=== PATIENT | female | born 1995 | race Hispanic/Latino ===

== ENCOUNTER 2018-09-05 19:11 | Inpatient (IN) | payer MEDICAID, SELFPAY ==
[~2018-09-05 19:11] MED LIST: Bupivacaine PF 0.5% 30 ML VIAL ONE
[2018-09-05] MEDS ORDERED: NS w/ Oxytocin 10 units 500 ML IV SCH (19:46)
[2018-09-05] MEDS ORDERED: HYDROcodone/Acetaminophen 5/325 mg Tablet PO PRN ×2 (19:46)
[2018-09-05] MEDS ORDERED: Promethazine HCl 25 MG/ML VIAL IM PRN (19:46)
[2018-09-05] MEDS ORDERED: hydrALAZINE 20 MG/ML VIAL SLOW IVP PRN (19:46)
[2018-09-05] MEDS ORDERED: Lidocaine 1% (PF) 30 ML VIAL SC PRN (19:46)
[2018-09-05] MEDS ORDERED: Butorphanol Tartrate 1 MG/ML VIAL SLOW IVP PRN (19:46)
[2018-09-05] MEDS ORDERED: Lactated Ringer's 1,000 ML IV SCH (19:46)
[2018-09-05] MEDS ORDERED: Ibuprofen 800 MG TAB PO PRN (19:46)
[2018-09-05] MEDS ORDERED: Misoprostol 100 MCG TAB VAG SCH (19:46)
[2018-09-05] MEDS ORDERED: Ondansetron PF 4 MG/2 ML Vial IVP PRN (19:46)
[2018-09-05] MEDS: Lactated Ringer's 1,000 ML IV SCH (19:50)
[2018-09-05 19:59] VITALS: BMI 38.4
[2018-09-05 20:08] LABS: Hemoglobin 12.2 g/dL (12.0-16.0); Mean Corpuscular HGB CONC 33.2 g/dL (32.0-36.0); Mean Corpuscular Hemoglobin 26.5 pg (27.0-31.0); Mean Corpuscular Volume 79.9 fL (78.0-98.0); Mean Platelet Volume 8.7 fL (7.4-10.4); Platelet Count 193 thou/uL (130-400); RBC Distribution Width 13.9 % (11.5-14.5); Red Blood Cell (RBC) Count 4.61 mill/uL (4.20-5.40); White Blood Cell (WBC) Count 6.9 thou/uL (4.8-10.8)
[2018-09-05 20:49] LABS: Syphilis Antibody Nonreactive (Nonreactive); Syphilis Antibody Index 0.05 S/CO (<1.00 Non-Reactive)
[2018-09-05 23:03] LABS: HBSAg Index 0.32 S/CO (0-0.99); Hep B Surf Ag Non-Reactive S/CO (NonReactive)
[2018-09-06] MEDS: Misoprostol 100 MCG TAB VAG SCH ×3 (00:07→12:05)
[2018-09-06] MEDS: Lactated Ringer's 1,000 ML IV SCH ×2 (05:12→08:54)
[2018-09-06] MEDS ORDERED: Fentanyl 4 mcg/Bup 0.1% Cadd 100 ML ONE (08:32)
[2018-09-06] MEDS ORDERED: ePHEDrine/0.9% NaCl/PF SYRINGE 50 mg/10 ml SLOW IVP PRN (09:33)
[2018-09-06] MEDS ORDERED: Lactated Ringer's 500 ML IV PRN (09:33)
[2018-09-06] MEDS ORDERED: Acetaminophen 325 MG TAB PO PRN (09:33)
[2018-09-06] MEDS ORDERED: diphenhydrAMINE 50 MG/ML VIAL IVP PRN (09:33)
[2018-09-06] MEDS ORDERED: Naloxone HCl 0.4 mg/ml Vial IVP PRN ×2 (09:33)
[2018-09-06] MEDS ORDERED: Promethazine HCl 25 MG/ML VIAL IM PRN (09:33)
[2018-09-06] MEDS ORDERED: Ondansetron PF 4 MG/2 ML Vial IVP PRN ×2 (09:33→12:06)
[2018-09-06] MEDS ORDERED: Terbutaline Sulfate 1 MG/ML VIAL ONE (09:44)
[2018-09-06] MEDS ORDERED: Fentanyl 4 mcg/Bupivacaine 0.1% Cassette 100 ML EPIDURAL SCH (09:45)
[2018-09-06] MEDS ORDERED: Communication Order-Pharmacy FS SCH (09:45)
[2018-09-06] MEDS: NS / Oxytocin 40 units/1000ml 1,000 ML IV PRN ×2 (10:04→10:39)
--- NOTE | 2018-09-06 11:04 | OP ---
DATE OF PROCEDURE: 09/06/2018 PREOPERATIVE DIAGNOSIS: Severe variable deceleration to 60s to 90 for greater than 7 minutes and complete, complete +3 station. POSTOPERATIVE DIAGNOSIS: Severe variable deceleration to 60s to 90 for greater than 7 minutes and complete, complete +3 station. PROCEDURE PERFORMED: Low vacuum extraction with second-degree midline episiotomy. ANESTHESIA: Epidural. QUANTITATIVE BLOOD LOSS: Pending. DRAINS: Kapoor to gravity. FINDINGS: 1. Vigorous female delivered 9 and 9 Apgars, weight pending, pH 7.19. 2. Placenta delivered intact. 3. Second-degree episiotomy repair with 2-0 chromic. 4. Low VE applied for 80 seconds in green with no pop-offs and delivery over episiotomy without extension. DESCRIPTION OF PROCEDURE: The patient progressed rapidly through labor and was complete, complete, and +[address] Stefanie Posey presented to the room and along with RN, performed resuscitative measures. I was called and presented to Labor and Delivery within approximately 8 minutes of initiation of the decelerations. By my arrival, the patient was complete, complete and +2 station. She was prepped and draped in the usual manner for vaginal delivery. With pushing, the patient descended the infant to +3 station, it was noted to be MATTY. Vacuum was applied and with contractions taken to the green level. Traction was applied. Over the course of 3 contractions, traction was applied in the green for vaginal delivery. Second-degree episiotomy was cut, modified medial. The infant was delivered without nuchal cord noted. Infant was cord, clamped, and cut, and handed off to neonatology in attendance. Cord gas again was obtained with pH as noted in the operative findings. The placenta delivered spontaneously within 5 minutes. Inspection of the vagina revealed a second-degree laceration without extension. It was closed in the usual manner using a 2-0 chromic suture. Counts were correct at the end of repair and the patient was entered into routine recovery. Job ID: [id number]
[2018-09-06] MEDS ORDERED: Benzocaine-Menthol 82.5 ML CAN TOP PRN (12:06)
[2018-09-06] MEDS ORDERED: Adacel (T-DAP) 0.5 ML SYRINGE IM ONE (12:06)
[2018-09-06] MEDS ORDERED: HYDROcodone/Acetaminophen 5/325 mg Tablet PO PRN ×2 (12:06)
[2018-09-06] MEDS ORDERED: Bisacodyl 10 MG SUPP PR PRN (12:06)
[2018-09-06] MEDS ORDERED: Zolpidem Tartrate 5 MG TAB PO PRN (12:06)
[2018-09-06] MEDS ORDERED: NS / Oxytocin 40 units/1000ml 1,000 ML IV SCH (12:06)
[2018-09-06] MEDS ORDERED: hydrALAZINE 20 MG/ML VIAL SLOW IVP PRN (12:06)
[2018-09-06] MEDS ORDERED: Milk Of Magnesia 30 ML UDCUP PO PRN (12:06)
[2018-09-06] MEDS ORDERED: Lanolin Ointment 7 GM TUBE TOP PRN (12:06)
[2018-09-06] MEDS: Ibuprofen 800 MG TAB PO SCH ×2 (14:16→21:20)
[2018-09-06] MEDS: Ferrous Sulfate 325 MG TAB PO SCH (18:27)
[2018-09-06] MEDS: Docusate Calcium (SURFAK) 240 MG CAP PO SCH (21:20)
[2018-09-07] MEDS: Ibuprofen 800 MG TAB PO SCH ×3 (05:51→21:41)
[2018-09-07] MEDS: Docusate Calcium (SURFAK) 240 MG CAP PO SCH ×2 (09:18→21:41)
[2018-09-07] MEDS: Prenatal Vitamin 1 TAB PO SCH (09:18)
[2018-09-07] MEDS: Ferrous Sulfate 325 MG TAB PO SCH ×2 (09:19→16:38)
[2018-09-07] MEDS: Misoprostol 100 MCG TAB VAG SCH (17:58)
[2018-09-08] MEDS: Ibuprofen 800 MG TAB PO SCH ×2 (06:05→13:29)
[2018-09-08 08:12] VITALS: BP 106/63; TEMP 98.6
[2018-09-08] MEDS: Ferrous Sulfate 325 MG TAB PO SCH (09:15)
[2018-09-08] MEDS: Docusate Calcium (SURFAK) 240 MG CAP PO SCH (09:16)
[2018-09-08] MEDS: Prenatal Vitamin 1 TAB PO SCH (09:16)
== END 2018-09-08 14:05 | disposition home or self-care (01) | DRG 807 ==
LOC: L&D 19:11 → 3SW 09-06 12:40
PROVIDERS: ADMIT Obstetrics & Gynecology; ATTEND Obstetrics & Gynecology
PROC: 10D07Z6 Extraction of Products of Conception, Vacuum, Via Natural or Artificial Opening (ICD-10-PCS; principal; 2018-09-05)
PROC: 0W8NXZZ Division of Female Perineum, External Approach (ICD-10-PCS; 2018-09-05)
PROC: 0KQM0ZZ Repair Perineum Muscle, Open Approach (ICD-10-PCS; 2018-09-05)
DX: O76 Abnormality in fetal heart rate and rhythm complicating labor and delivery (principal); Z37.0 Single live birth; O70.1 Second degree perineal laceration during delivery; Z3A.37 37 weeks gestation of pregnancy
CPT/HCPCS: 36415; 51702; 82805; 85027; 86780; 86850; 86900; 86901; 87340; 90715; J0595; J2001; J2405; J2590; J3105; S0020

== ENCOUNTER 2018-12-31 17:01 | Emergency (ER) | payer MEDICAID, SELFPAY ==
--- NOTE | 2018-12-31 17:58 | RAD ---
EXAM: Two views chest PROVIDED CLINICAL HISTORY: Left-sided chest pain for 3 months. Pressure sensation. COMPARISON: None FINDINGS: Cardiac silhouette and pulmonary vasculature are within normal limits. The lungs are clear. The osse ous structures have a normal appearance. IMPRESSION: No acute cardiopulmonary process.
--- NOTE | 2018-12-31 18:00 | RAD ---
EXAM: XR Lumbar Spine 2 Or 3 View PROVIDED CLINICAL HISTORY: Left-sided back pain. Pressure sensation. COMPARISON: None FINDINGS: There are 5 nonrib-bearing lumbar-type vertebral bodies. There is slight left convex curvature of the lumbar spine. The vertebral body heights and intervertebral disc spaces are within normal limits. No fracture or subluxation is seen involving the lumbar spine. IMPRESSION: Normal views lumbar spine without acute osseous abnormality seen
[2018-12-31] MEDS ORDERED: Ketorolac Tromethamine 30 MG/ML VIAL ONE (18:05)
[2018-12-31] MEDS ORDERED: Acetaminophen 500 MG TAB ONE (18:05)
[2018-12-31 18:08] LABS: #Eosinphils 0.1 thou/uL (0.0-0.7); #Lymphocytes 3.8 thou/uL (1.20-3.40); #Monocytes 0.5 thou/uL (0.11-0.59); #Neutrophils 3.5 thou/uL (1.40-6.50); %Basophils 0.3 % (0.0-1.0); %Eosinophils 1.8 % (0.0-10.0); %Lymphocytes 47.7 % (21.0-51.0); %Monocytes 5.9 % (0.0-10.0); %Neutrophils 44.3 % (42.0-75.0); Hemoglobin 13.2 g/dL (12.0-16.0); Mean Corpuscular HGB CONC 32.6 g/dL (32.0-36.0); Mean Corpuscular Hemoglobin 26.5 pg (27.0-31.0); Mean Corpuscular Volume 81.3 fL (78.0-98.0); Mean Platelet Volume 8.1 fL (7.4-10.4); Platelet Count 262 thou/uL (130-400); RBC Distribution Width 13.2 % (11.5-14.5); Red Blood Cell (RBC) Count 4.98 mill/uL (4.20-5.40)
[2018-12-31 18:29] LABS: ALT (SGPT) 12 U/L (8-55); AST (SGOT) 14 U/L (5-34); Albumin 4.6 g/dL (3.5-5.0); Alkaline Phosphatase 102 U/L (40-110); Anion Gap 14 mmol/L (10-20); BUN (Urea Nitrogen) 11 mg/dL (7.0-18.7); Bilirubin, Total 0.4 mg/dL (0.2-1.2); Calc. Creatinine Clearance 0 mL/min (70-130); Calcium 9.5 mg/dL (7.8-10.44); Carbon Dioxide 23 mmol/L (22-29); Chloride 105 mmol/L (98-107); Estimated GFR-MDRD Greater than 90; Globulin 3.1 g/dL (2.4-3.5); Glucose 84 mg/dL (70-105); Protein, Total 7.7 g/dL (6.0-8.3); Sodium 138 mmol/L (136-145)
[2018-12-31 18:34] LABS: Bilirubin Negative (Negative); Blood, Urine Negative (Negative); Clarity Clear (Clear); Glucose, Urine (Dipstick) Normal (Negative); Leukocyte Negative Leu/uL (Negative); Nitrite Negative (Negative); Protein, Urine (Dipstick) Negative (Neg-Trace); Urobilinogen Normal mg/dL (Less than 2)
[2018-12-31 18:35] LABS: Pregnancy Test - Urine (BHCG) Negative (Negative); Specific Gravity 1.022 (1.002-1.036)
[2018-12-31 18:36] LABS: Pregu Control Background? CLEAR/WHITE (CLR/WHITE); Pregu Control Bar Appear? YES (CONTROL BAR)
== END 2018-12-31 21:02 | disposition home or self-care (01) ==
LOC: ERS 17:01
DX: M54.5 Low back pain (principal); R10.9 Unspecified abdominal pain
CPT/HCPCS: 36415; 71046; 72100; 80053; 81003; 81025; 85025; 96372; J1885